=== PATIENT | female | born 1985 | race Caucasian/White ===

== ENCOUNTER 2017-03-21 14:01 | Outpatient (CLI) | payer OTHER ==
[2017-03-21 15:03] LABS: BASOPHILS % (AUTO) 0.3 %; EOSINOPHILS % (AUTO) 0.4 %; LYMPHOCYTES # (AUTO) 2.2 10^3/uL (1.5-3.5); LYMPHOCYTES % (AUTO) 20.6 %; MEAN CORPUSCULAR HEMOGLOBIN 29.1 pg (27.0-31.0); MEAN CORPUSCULAR HGB CONC 33.3 g/dL (32.0-36.0); MEAN CORPUSCULAR VOLUME 87.4 fL (81.0-99.0); MEAN PLATELET VOLUME 9.5 fL (7.9-10.8); MONOCYTES # (AUTO) 0.5 10^3/uL (0.0-1.0); MONOCYTES % (AUTO) 4.7 %; NEUTROPHILS # (AUTO) 7.8 10^3/uL (1.5-6.6); RED BLOOD COUNT 3.78 10^6/uL (4.20-5.40); RED CELL DISTRIBUTION WIDTH 13.9 % (12.0-15.0); UNCORRECTED WHITE BLOOD COUNT 10.5 x10^3/uL; WHITE BLOOD COUNT 10.5 x10^3/uL (4.8-10.8)
[2017-03-21 15:16] LABS: ALBUMIN/GLOBULIN RATIO 0.9 (1.0-2.2); BILIRUBIN,TOTAL 0.4 mg/dL (0.2-1.0); CALCIUM 8.7 mg/dL (8.5-10.3); CREATININE 0.5 mg/dL (0.4-1.0); POTASSIUM 3.4 mmol/L (3.5-5.0); TOTAL PROTEIN 6.4 g/dL (6.7-8.2)
[2017-03-21 15:52] LABS: BILIRUBIN,URINE NEGATIVE (NEGATIVE)
[2017-03-21 15:53] LABS: UA CHARGE (STRIP ONLY) YES; UR CULTURE IF IND NOT INDICATED
[2017-03-21 16:22] VITALS: BP 110/63
--- NOTE | 2017-03-22 07:07 | HISTORY & PHYSICAL EXAMINATION ---
DATE OF ADMISSION: 03/21/2017 DIAGNOSES 1. A 28 week 4 day gestation. 2. Vague abdominal discomfort in the mid epigastrium. HISTORY: The patient is a 31-year-old 2, para 0-0-1-0 at 28 weeks and 4 days' gesta tion who developed a fluttering discomfort in her mid upper abdomen. She does not relate any jenna ut erine contractions, leakage of fluid. She has no fevers, nausea, vomiting, or UTI symptoms. There is no occurrence of this pain associated with food. PHYSICAL EXAMINATION GENERAL: Well groomed, pleasant, talkative, lying in bed, no distress. VITAL SIGNS: Temperature 98.4, pulse 76, blood pressure 129/59, respirations 16, oxygen saturation 98 . ABDOMEN: Nondistended. No hepatosplenomegaly. No tenderness elicited or peritoneal signs. UTERUS: Appropriate for size, roughly 28 cm; no focal tenderness or palpable contractions. move ment is palpated. EFM reactive for 28 weeks, baseline 150, good accels, occasional variable decel. No contractions note d. LABORATORY DATA: Hemoglobin 11.0, white count 10.5, platelets 176. AST 18, ALT 16, alkaline phosphatase 79, total protein 6.4, albumin 3.1, calcium 8.7, sodium 137, pot assium 3.4, creatinine 0.5, GFR estimated 146. Urine: Yellow, clear. Negative protein, nitrite and blood. ASSESSMENT: The patient has vague abdominal pain that does not seem to emanate from the uterus. The l ocation is suspect for biliary pain, but it does not fit the description of biliary pain and physical examination does not find any abdominal pain at all. There is little symptomatology or laboratory ev idence for urinary tract infection. Overall, pain is enigmatic and probably self-limiting. PLAN: The patient was given reassurance and sent home with warning signs and call back instructions. JOB #: [id number] EXT JOB #:[id number]
== END 2017-03-21 16:20 | disposition home or self-care (01) ==
LOC: WFO 14:01 → OB 14:06 → WFO 16:20
PROVIDERS: ATTEND Obstetrics & Gynecology
DX: O99.89 Other specified diseases and conditions complicating pregnancy, childbirth and the puerperium (principal); R10.13 Epigastric pain; Z3A.28 28 weeks gestation of pregnancy
CPT/HCPCS: 36415; 80053; 80306; 81001; 81003; 85025; 87086; 99213

== ENCOUNTER 2017-04-15 14:10 | Outpatient (CLI) | payer OTHER ==
[2017-04-15 14:41] VITALS: BP 111/64
[2017-04-15 14:41] LABS: BILIRUBIN,URINE NEGATIVE (NEGATIVE)
[2017-04-15 14:42] LABS: UA CHARGE (STRIP ONLY) YES; UR CULTURE IF IND NOT INDICATED
== END 2017-04-15 16:50 | disposition home or self-care (01) ==
LOC: WFO 14:10 → OB 14:11 → WFO 16:50
PROVIDERS: ATTEND Obstetrics & Gynecology
DX: O99.89 Other specified diseases and conditions complicating pregnancy, childbirth and the puerperium (principal); R10.9 Unspecified abdominal pain; Z3A.32 32 weeks gestation of pregnancy
CPT/HCPCS: 81001; 81003; 82731; 87086; 99214

== ENCOUNTER 2017-05-13 10:31 | Outpatient (CLI) | payer OTHER | END 2017-05-13 10:32 | LOC: LAB.R 10:31 | PROVIDERS: ATTEND Obstetrics & Gynecology | DX: Z34.83 Encounter for supervision of other normal pregnancy, third trimester (principal) | CPT/HCPCS: 87081 ==

== ENCOUNTER 2017-05-22 15:47 | Outpatient (CLI) | payer OTHER ==
[2017-05-22 16:11] VITALS: BP 126/57
[2017-05-22 16:21] LABS: BILIRUBIN,URINE NEGATIVE (NEGATIVE)
[2017-05-22 16:39] LABS: UR CULTURE IF IND NOT INDICATED
== END 2017-05-22 16:50 | disposition home or self-care (01) ==
LOC: WFO 15:47 → OB 15:54 → WFO 16:50
PROVIDERS: ATTEND Obstetrics & Gynecology
DX: Z34.83 Encounter for supervision of other normal pregnancy, third trimester (principal)
CPT/HCPCS: 81001; 87086; 99212

== ENCOUNTER 2017-05-28 23:55 | Inpatient (IN) | payer OTHER ==
[2017-05-29] MEDS ORDERED: PENICILLIN G POTASSIUM 5,000,000 UNIT in SODIUM CHLORIDE 0.9% MINIBAG 100 ML IV ONE (00:49)
[2017-05-29] MEDS ORDERED: fentaNYL 100 MCG/2 ML VIAL IVP PRN (00:50)
[2017-05-29] MEDS ORDERED: SODIUM CHLORIDE FLUSH 0.9% 10 ML SYRINGE IVP PRN (00:50)
[2017-05-29] MEDS ORDERED: OXYTOCIN/LACTATED RINGERS 250 ML IV SCH ×2 (01:00→10:00)
[2017-05-29] MEDS: LACTATED RINGERS 1,000 ML IV SCH ×4 (01:15→19:22)
[2017-05-29] MEDS ORDERED: SODIUM CHLORIDE 0.9% 100ML 100 ML IV ONE (01:28)
[2017-05-29 01:47] LABS: BASOPHILS % (AUTO) 0.2 %; EOSINOPHILS % (AUTO) 0.4 %; HCT - HEMATOCRIT 33.2 % (37.0-47.0); HGB - HEMOGLOBIN 11.2 g/dL (12.0-16.0); LYMPHOCYTES # (AUTO) 2.3 10^3/uL (1.5-3.5); MEAN CORPUSCULAR HEMOGLOBIN 29.1 pg (27.0-31.0); MEAN CORPUSCULAR HGB CONC 33.8 g/dL (32.0-36.0); MEAN CORPUSCULAR VOLUME 86.2 fL (81.0-99.0); MEAN PLATELET VOLUME 11.5 fL (7.9-10.8); MONOCYTES # (AUTO) 0.5 10^3/uL (0.0-1.0); MONOCYTES % (AUTO) 4.5 %; NEUTROPHILS # (AUTO) 8.7 10^3/uL (1.5-6.6); NEUTROPHILS % (AUTO) 74.9 %; RED BLOOD COUNT 3.85 10^6/uL (4.20-5.40); UNCORRECTED WHITE BLOOD COUNT 11.6 x10^3/uL; WHITE BLOOD COUNT 11.6 x10^3/uL (4.8-10.8)
[2017-05-29] MEDS ORDERED: PENICILLIN G POTASSIUM 2,500,000 UNIT in SODIUM CHLORIDE 0.9% 100ML 100 ML IV SCH (05:00)
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
[2017-05-29] MEDS: PENICILLIN G POTASSIUM 2,500,000 UNIT in SODIUM CHLORIDE 0.9% 100ML 100 ML IV SCH ×3 (11:43→23:00)
--- NOTE | 2017-05-29 13:59 | PROVIDER PROGRESS NOTE ---
Labor Progress Note - Uterine Monitoring Contraction Frequency (min/apart): Intermitent Contraction Intensity: positive: Mild Uterine Resting Tone: positive: Soft - Monitoring Monitor Mode: positive: External ultrasound Heart Rate Baseline: 135 Heart Rate Variability: positive: Moderate (6-25 bmp) Accelerations: positive: Present, 15x15 Decelerations: positive: Prolonged (>2x10 min) Strip Review: positive: Category II (2.5 min Decel to 70's w recovery) - Labor Progress Note Labor Progress Note/Additional Text: Pit stopped and O2 w position change. Recovery. I am in house for Pit Restart.
--- NOTE | 2017-05-29 17:14 | PROVIDER PROGRESS NOTE ---
Labor Progress Note - Uterine Monitoring Uterine Monitoring Mode: positive: External toco, Palpation Contraction Frequency (min/apart): Q4-6 Min Contraction Intensity: positive: Moderate Uterine Resting Tone: positive: Soft - Monitoring Monitor Mode: positive: External ultrasound Heart Rate Baseline: 135 Heart Rate Variability: positive: Moderate (6-25 bmp) Accelerations: positive: Absent Decelerations: positive: None Strip Review: positive: Category I - Vaginal Exam Dilation (in cm): 1 Effacement (%): 25% Station: -1 Cervical Position: Posterior - Labor Progress Note Labor Progress Note/Additional Text: Patient contractions have increased and pain control an issue. We discussed epidural again and she approves. Stable Cat1 FHT tracing. When cervix better dilated will offer IUPC. Patient expresses frustration at slow progress but reassurance offered.
[2017-05-29] MEDS ORDERED: fent/BUPIV 2 MCG/0.125% 250 ML EP ONE (17:34)
[2017-05-29] MEDS ORDERED: ROPIVACAINE 0.2% PF 10 ML VIAL EPI ONE (18:00)
[2017-05-29] MEDS ORDERED: ePHEDrine 50 MG/ML AMP IVP PRN (18:16)
[2017-05-29] MEDS ORDERED: NALBUPHINE 20 MG/ML AMP IVP PRN (18:16)
[2017-05-29] MEDS ORDERED: diphenhydrAMINE INJ 50 MG/ML VIAL IVP PRN (18:16)
[2017-05-29] MEDS ORDERED: LACTATED RINGERS 500 ML IV ONE (18:16)
[2017-05-29] MEDS ORDERED: fent/BUPIV 2 MCG/0.125% 250 ML EP PRN (18:16)
[2017-05-29] MEDS ORDERED: NALOXONE 0.4 MG/ML VIAL IVP PRN (18:16)
[2017-05-29] MEDS ORDERED: ONDANSETRON 4 MG/2 ML VIAL IVP PRN (18:16)
[2017-05-29] MEDS ORDERED: METOCLOPRAMIDE 10 MG/2 ML VIAL IVP PRN (18:16)
--- NOTE | 2017-05-29 19:23 | PROVIDER PROGRESS NOTE ---
Labor Progress Note - Uterine Monitoring Uterine Monitoring Mode: positive: IUPC Contraction Frequency (min/apart): Q 2.5 min Contraction Intensity: positive: Moderate to strong Uterine Resting Tone: positive: Soft - Monitoring Monitor Mode: positive: External ultrasound Heart Rate Baseline: 135 -140 Heart Rate Variability: positive: Moderate (6-25 bmp) Accelerations: positive: Present, 15x15 Decelerations: positive: None - Vaginal Exam Dilation (in cm): 2 Effacement (%): 80% Station: 0 Cervical Position: Midposition - Labor Progress Note Labor Progress Note/Additional Text: Progress made w Augmentation. Pit 9 mu, IUPC inserted and working
[2017-05-29] MEDS: ONDANSETRON 4 MG/2 ML VIAL IVP PRN (23:05)
[2017-05-30] MEDS: LACTATED RINGERS 1,000 ML IV SCH (02:14)
[2017-05-30] MEDS: PENICILLIN G POTASSIUM 2,500,000 UNIT in SODIUM CHLORIDE 0.9% 100ML 100 ML IV SCH (02:50)
--- NOTE | 2017-05-30 03:23 | PROVIDER PROGRESS NOTE ---
Labor Progress Note - Uterine Monitoring Uterine Monitoring Mode: positive: IUPC Contraction Frequency (min/apart): 2.5 min Contraction Intensity: positive: Moderate to strong Uterine Resting Tone: positive: Soft Other Uterine Monitoring: + 200 Archbold Units - Monitoring Monitor Mode: positive: External ultrasound Heart Rate Baseline: 135 Heart Rate Variability: positive: Moderate (6-25 bmp) Accelerations: positive: Present, 15x15 Decelerations: positive: None Strip Review: positive: Category I - Vaginal Exam Dilation (in cm): 10 Effacement (%): 1000% Station: 1 Cervical Position: Anterior - Labor Progress Note Labor Progress Note/Additional Text: Entering Stage 2
--- NOTE | 2017-05-30 04:47 | PROVIDER PROGRESS NOTE ---
Labor Progress Note - Uterine Monitoring Uterine Monitoring Mode: positive: IUPC Contraction Frequency (min/apart): Q 2.5 Contraction Intensity: positive: Moderate to strong Uterine Resting Tone: positive: Soft Other Uterine Monitoring: IUPC - Monitoring Monitor Mode: positive: External ultrasound Heart Rate Baseline: 130 Heart Rate Variability: positive: Moderate (6-25 bmp) Accelerations: positive: Present, 15x15 Decelerations: positive: Early Strip Review: positive: Category I - Vaginal Exam Dilation (in cm): 10 Effacement (%): 100 Station: 1 Cervical Position: Anterior - Labor Progress Note Labor Progress Note/Additional Text: Pt pushing w good effort. Using squat Bar. Mod Caput
[2017-05-30] MEDS: ONDANSETRON 4 MG/2 ML VIAL IVP PRN (05:59)
[2017-05-30] MEDS ORDERED: LACTATED RINGERS 1,000 ML IV ONE (06:11)
[2017-05-30] MEDS: LACTATED RINGERS 1,000 ML IV ONE ×2 (06:11→08:18)
[2017-05-30] MEDS ORDERED: CITRIC ACID/SODIUM CITRATE 15 ML UDC PO ONE (06:15)
[2017-05-30] MEDS ORDERED: ceFAZolin 3 GM in SODIUM CHLORIDE 0.9% 100ML 100 ML IV SCH (06:18)
[2017-05-30] MEDS ORDERED: ceFAZolin 2 GM/50 ML 50 ML IV ONE (06:27)
[2017-05-30] MEDS ORDERED: ceFAZolin 1 GM VIAL ONE (06:29)
[2017-05-30] MEDS ORDERED: SODIUM CHLORIDE 0.9% 50 ML IV ONE (06:31)
[2017-05-30] MEDS ORDERED: SODIUM BICARBONATE ABBOJECT 50 MEQ/50 ML SYRINGE IVP ONE (06:45)
[2017-05-30] MEDS ORDERED: MORPHINE PF 5 MG/10 ML AMP EP ONE (06:45)
[2017-05-30] MEDS ORDERED: OXYTOCIN 10 UNIT/ML VIAL IV ONE (06:45)
[2017-05-30] MEDS ORDERED: fentaNYL 100 MCG/2 ML VIAL IVP ONE (06:45)
[2017-05-30] MEDS ORDERED: KETOROLAC 30 MG/ML VIAL IVP ONE (06:45)
[2017-05-30] MEDS ORDERED: ONDANSETRON 4 MG/2 ML VIAL IVP ONE (06:45)
[2017-05-30] MEDS ORDERED: CARBOPROST TROMETHAMINE 250 MCG/ML AMP IM ONE (06:45)
[2017-05-30] MEDS ORDERED: LIDOCAINE 2%-EPI 1:100000 20 ML MDV SUBQ ONE (06:45)
[2017-05-30] MEDS ORDERED: LIDOCAINE-MPF 2% 5 ML VIAL IM ONE (06:45)
[2017-05-30] MEDS ORDERED: LACTATED RINGERS 1,000 ML IV SCH ×2 (08:00→09:00)
[2017-05-30] MEDS ORDERED: MAGNESIUM HYDROXIDE 2,400 MG/30 ML UDC PO PRN (08:05)
[2017-05-30] MEDS ORDERED: diphenhydrAMINE 25 MG CAPSULE PO PRN (08:05)
[2017-05-30] MEDS ORDERED: ZOLPIDEM 5 MG TABLET PO PRN (08:05)
--- NOTE | 2017-05-30 08:14 | OPERATIVE REPORT ---
Operative Report - General Admit Date: 05/29/17 Procedure Date: 05/30/17 Planned Procedure: Primary C Section Pre-Op Diagnosis: Failure to Descend; Post Op Diagnosis: Same; Macrosomia - Procedure Note Primary Surgeon: Rony DONOVAN Secondary Surgeon: Carlos DONOVAN Anesthesia Provider: CONCHITA Worley Anesthesia Technique: Epidural Estimated Blood Loss (in cc): 450 Drain/Tube Type: Other (Guidry & Wound Vac) Complications: NONE - Other Other Information/Narrative: Male, W = 9lbs 6oz. Cord gases
[2017-05-30] MEDS: ACETAMINOPHEN 500 MG TABLET PO SCH ×2 (12:06→16:57)
[2017-05-30] MEDS: IBUPROFEN 600 MG TABLET PO SCH ×3 (12:08→19:33)
[2017-05-30] MEDS: oxyCODONE 5 MG TABLET PO PRN ×3 (13:51→22:59)
[2017-05-30] MEDS: DOCUSATE SODIUM 100 MG CAPSULE PO SCH (13:52)
[2017-05-30] MEDS: SIMETHICONE CHEW 80 MG TABLET PO SCH ×2 (13:53→22:59)
[2017-05-31] MEDS: IBUPROFEN 600 MG TABLET PO SCH ×4 (01:28→19:54)
[2017-05-31] MEDS: ACETAMINOPHEN 500 MG TABLET PO SCH ×3 (01:28→17:22)
[2017-05-31] MEDS: DOCUSATE SODIUM 100 MG CAPSULE PO SCH ×3 (01:28→21:24)
[2017-05-31] MEDS: oxyCODONE 5 MG TABLET PO PRN ×5 (04:10→20:41)
--- NOTE | 2017-05-31 06:23 | PROVIDER PROGRESS NOTE ---
Subjective - General Admit Date: 05/29/17 Procedure Date: 05/30/17 Post Op Days: 1 Procedure Performed: C Section - Review of Systems Wound/Incisions: positive: Healing well, Dressing dry and intact Drain Type: Guidry Out General: positive: No symptoms HEENT: positive: No symptoms Pulmonary: positive: No symptoms Cardiovascular: positive: No symptoms Gastrointestinal: positive: Flatus Genitourinary: positive: No symptoms, Other (Mild Nonfoul Rubra) Musculoskeletal: positive: No symptoms Skin: positive: No symptoms Psychiatric: positive: No symptoms Objective - Patient Data Vital Signs: Vital Signs x48h Temp Pulse Resp BP Pulse Ox 05/31/17 03:54 98.4 F 80 16 116/47 L 98 05/31/17 01:30 16 05/31/17 00:08 98.4 F 75 16 117/48 L 98 05/30/17 22:30 16 Weight: Weight 05/29/17 05/30/17 05/31/17 23:59 23:59 23:59 Weight (kg) 113.852 kg Intake & Output: Intake and Output Totals x24h 05/29/17 05/30/17 05/31/17 23:59 23:59 23:59 Intake Total 4605 1074 1000 Output Total 1225 1880 1100 Balance 3380 -806 -100 - Lab Results Lab Results: 05/29/17 01:15 - Current Medications Current Medications: Current Medications Generic Name Dose Route Start Last Admin Trade Name Freq PRN Reason Stop Dose Admin Acetaminophen 1,000 mg 05/30/17 09:00 05/31/17 01:28 Tylenol PO 1,000 mg Q8H DREW Administration Diphenhydramine HCl 25 mg 05/30/17 08:05 05/30/17 11:01 Benadryl PO 25 mg Q6H PRN Administration ITCHING Docusate Sodium 100 mg 05/30/17 09:00 05/31/17 01:28 Colace 100mg Capsule PO 100 mg BID DREW Administration Lactated Ringer's 1,000 mls @ 150 mls/hr 05/29/17 01:00 05/30/17 02:14 Lr IV 150 mls/hr .Q6H40M DREW Administration Oxytocin/Lactated Ringer's 250 mls @ 1 mls/hr 05/29/17 10:00 05/30/17 04:51 Pitocin/Lactated Ringers IV 11 milliunit/min TITR DREW Titration Protocol 1 MILLIUNIT/MIN Ibuprofen 600 mg 05/30/17 09:00 05/31/17 01:28 Motrin PO 600 mg Q6H DREW Administration Ondansetron HCl 4 mg 05/29/17 00:50 05/30/17 05:59 Zofran Inj IVP 4 mg Q4H PRN Administration Nausea / Vomiting Oxycodone HCl 5 mg 05/30/17 08:05 05/31/17 04:10 Roxicodone PO 5 mg Q4HR PRN Administration PAIN Simethicone 80 mg 05/30/17 14:00 05/30/17 22:59 Mylicon PO 80 mg TID DREW Administration Sodium Chloride 10 ml 05/29/17 00:50 05/30/17 14:00 Normal Saline Flush 0.9% IVP 10 ml PRN PRN Administration NEEDED PER PROVIDER ORDERS Exam - Exam Vital Signs: Vital Signs (72 hours) 05/29/17 05/30/17 05/30/17 00:06 08:10 08:15 Temperature 97.9 F Heart Rate [ 70 Monitoring electrodes] Respiratory 16 Rate Blood Pressure [Left Brachial artery] Blood Pressure 137/83 H [Right Brachial artery] O2 Saturation 100 95 95 05/30/17 05/30/17 05/30/17 08:20 08:25 08:30 Temperature Heart Rate [ Monitoring electrodes] Respiratory Rate Blood Pressure [Left Brachial artery] Blood Pressure [Right Brachial artery] O2 Saturation 96 96 97 05/30/17 05/30/17 05/30/17 08:35 08:40 08:45 Temperature Heart Rate [ Monitoring electrodes] Respiratory Rate Blood Pressure [Left Brachial artery] Blood Pressure [Right Brachial artery] O2 Saturation 97 97 97 05/30/17 05/30/17 05/30/17 09:00 09:30 10:00 Temperature 98.2 F 98.4 F Heart Rate [ 79 72 72 Monitoring electrodes] Respiratory 17 16 Rate Blood Pressure 121/55 L 116/61 119/63 [Left Brachial artery] Blood Pressure [Right Brachial artery] O2 Saturation 99 99 05/30/17 05/30/17 05/30/17 10:30 11:00 11:46 Temperature Heart Rate [ 72 Monitoring electrodes] Respiratory 16 17 Rate Blood Pressure 114/60 [Left Brachial artery] Blood Pressure [Right Brachial artery] O2 Saturation 05/30/17 05/30/17 05/30/17 11:54 13:10 14:11 Temperature 97.9 F Heart Rate [ 84 77 Monitoring electrodes] Respiratory 18 18 18 Rate Blood Pressure [Left Brachial artery] Blood Pressure 132/61 H [Right Brachial artery] O2 Saturation 98 98 05/30/17 05/30/17 05/30/17 16:00 19:39 20:30 Temperature 98.4 F 98.4 F Heart Rate [ 75 86 Monitoring electrodes] Respiratory 16 16 16 Rate Blood Pressure 104/56 L [Left Brachial artery] Blood Pressure 111/60 [Right Brachial artery] O2 Saturation 97 100 05/30/17 05/30/17 05/30/17 21:16 21:40 22:30 Temperature Heart Rate [ Monitoring electrodes] Respiratory 16 18 16 Rate Blood Pressure [Left Brachial artery] Blood Pressure [Right Brachial artery] O2 Saturation 05/31/17 05/31/17 05/31/17 00:08 01:30 03:54 Temperature 98.4 F 98.4 F Heart Rate [ 75 80 Monitoring electrodes] Respiratory 16 16 16 Rate Blood Pressure [Left Brachial artery] Blood Pressure 117/48 L 116/47 L [Right Brachial artery] O2 Saturation 98 98 General: Alert, Oriented x3 HEENT: EOMI, Mucous membr. moist/pink Lungs: Clear to auscultation Cardiovascular: Regular rate, Normal S1, Normal S2, No murmurs Abdomen: Normal bowel sounds, Soft, No tenderness Extremities: Other (Ankle Edema NO calf tenderness) Skin: No rashes Neurological: Normal speech, Normal tone, Sensation intact Psych/Mental Status: Mental status NL Assess/Plan - Patient Problems Active Problems Comments: Pt recovering well. Ambulate & increase activity. - Additional Planning Condition/Complexity: Other (GOOD) My Orders: My Active Orders 05/30/17 06:17 SCDs [RC] QSHIFT 05/30/17 08:00 OB Maintain Wound VAC [RC] Q4HR 05/30/17 08:01 Activity - [RC] QSHIFT IO [RC] Q1HX12,Q4HR Incentive Spirometry - RT [RC] Routine Notify Provider - Specific Ins [RC] PRN Notify Provider - VS Parameter [RC] .notify Vital Signs - OB [RC] Q15MX8,Q1HRX2,Q4HRX6,QSHIFT 05/30/17 08:05 IO [RC] Q1HX12,Q4HR Incentive Spirometry - RT [RC] Routine Initiate Line Care Protocol [RC] .protocol Notify Provider - Specific Ins [RC] PRN Notify Provider - VS Parameter [RC] .notify Checks - OB [RC] Q15MX8,Q1HRX2,Q4HRX6,QSHIFT Vital Signs - OB [RC] Q15MX8,Q1HRX2,Q4HRX6,QSHIFT Magnesium Hydroxide [Milk of Magnesia] 2,400 mg PO Q8HR PRN Zolpidem [Ambien] 10 mg PO QPM PRN diphenhydrAMINE [Benadryl] 25 mg PO Q6H PRN oxyCODONE [Roxicodone] 5 mg PO Q4HR PRN Condition of Patient [OTHERS] Routine DVT Prophylaxis [OTHERS] Routine 05/30/17 08:06 SCDs [RC] QSHIFT 05/30/17 09:00 Acetaminophen [Tylenol] 1,000 mg PO Q8H Docusate Sodium 100Mg Capsule [Colace 100Mg Capsule] 100 mg PO BID Ibuprofen [Motrin] 600 mg PO Q6H Lactated Ringers [Lr] 1,000 ml IV 100 mls/hr 05/30/17 14:00 Simethicone [Mylicon] 80 mg PO TID 05/30/17 20:01 Guidry Discontinuation [RC] ONCE 05/30/17 Lunch Regular Diet [DIET] 05/31/17 05:00 CBC - COMP BLD CT W/AUTO DIFF [HEME] Routine Plan Discussed with:: Patient, Other (On Coming OB) Time Spent: 15-30 minutes
[2017-05-31 06:56] LABS: BASOPHILS % (AUTO) 0.2 %; EOSINOPHILS % (AUTO) 0.4 %; HCT - HEMATOCRIT 28.9 % (37.0-47.0); HGB - HEMOGLOBIN 9.5 g/dL (12.0-16.0); LYMPHOCYTES # (AUTO) 1.9 10^3/uL (1.5-3.5); LYMPHOCYTES % (AUTO) 16.4 %; MEAN CORPUSCULAR HGB CONC 32.7 g/dL (32.0-36.0); MEAN CORPUSCULAR VOLUME 88.5 fL (81.0-99.0); MEAN PLATELET VOLUME 10.1 fL (7.9-10.8); MONOCYTES # (AUTO) 0.6 10^3/uL (0.0-1.0); MONOCYTES % (AUTO) 5.3 %; NEUTROPHILS # (AUTO) 8.9 10^3/uL (1.5-6.6); NEUTROPHILS % (AUTO) 77.7 %; RED BLOOD COUNT 3.26 10^6/uL (4.20-5.40); RED CELL DISTRIBUTION WIDTH 14.1 % (12.0-15.0); UNCORRECTED WHITE BLOOD COUNT 11.4 x10^3/uL; WHITE BLOOD COUNT 11.4 x10^3/uL (4.8-10.8)
[2017-05-31] MEDS: SIMETHICONE CHEW 80 MG TABLET PO SCH ×3 (06:58→21:24)
--- NOTE | 2017-05-31 07:35 | OPERATIVE REPORT ---
DATE OF SURGERY: 05/29/2017 00:00:00 PREOPERATIVE DIAGNOSES 1. Term with premature rupture of membranes. 2. Pitocin augmentation. 3. Failure to descend in second stage of labor. 4. Macrosomia suspected. 5. Group B streptococcal maternal colonization. 6. Maternal morbid obesity. POSTOPERATIVE DIAGNOSES 1. Macrosomic infant. 2. Term with premature rupture of membranes. 3. Pitocin augmentation. 4. Failure to descend in second stage of labor. 5. Group B streptococcal maternal colonization. 6. Maternal morbid obesity. NAME OF PROCEDURE: Primary lower segment transverse section; vacuum assist, living male . SURGEON: En Uribe MD, FACOG, FICS DIRECTOR SOCIAL SERVICE SURGEON: Miguel Gonzalez MD ANESTHESIA: Aguilar Worley CRNA; epidural. COMPLICATIONS: None. BLOOD LOSS: 450. DRAINS: Guidry with 300 mL of clear urine. FINDINGS: Prior to surgery, patient was augmented with the aid of an IUPC and was found to have plus 250 Conrath units for over 2 hours. She pushed with excellent effort and could not advance the head beyond +1 station, though the fetus developed marked caput. Membranes had been ruptured in excess of 24 hours. For the most part, external monitor strip was stable though there were rare intermittent late decelerations, overall cat 1. Prior to section, complete informed consent session was done and consent signed. Incision start time was 0700 with of a living male infant at 0712 hours. The male was large with a weight of 9 pounds 7.5 ounces, with a head circumference in excess of 14. Shoulders also were noted to be large. There was no trauma noted on initial examination or obvious congenital anomalies. Apgars were 9 and 9 with arterial cord pH of 7.203 and base excess of -5.9. Reference Dr. Spears's notes. The uterus had no myomas or intracavitary defects. Both tubes were open and fluffy in appearance. Ovaries were normal with some follicular activity and decidualization reaction. Placenta was delivered intact without abruption or obvious signs of infection. Cord was 3-vessel configuration. There was no cord entanglement or cord factor to explain the lack of descent. TECHNIQUE: Patient was brought to the operating room and placed in the supine position initially. She was then moved to the dorsal lithotomy position on Kingsley mobile stirrups. She was prepped and draped in the customary sterile fashion inclusive of vaginal prep. Anesthesia was confirmed good through level T10. Timeout briefing was done per protocol. All team members were briefed as to what to expect during the procedure. Mother affirmed that she was ready to begin. Abdominal wall was opened with a Pfannenstiel incision. As noted before, the patient was morbidly obese. The fetus position was ascertained by palpation and did not seem to be well-engaged. Curvilinear hysterotomy was cut transversely. On entry into the amniotic cavity, clear fluid, nonfoul, was expressed. Incision was extended with gentle finger traction. Firer Locomotive Crane secured the head with his right hand and guided it into the hysterotomy wound. The physician assistant certified applied moderate amount of fundal pressure; however, the head could not easily fit through the hysterotomy. Hysterotomy was deemed adequate. Kiwi vacuum was placed on the vertex point and once again pressure and traction applied with a resultant popout. Kiwi was reapplied and it took two more pulls before delivery of the head. Oral and nasopharynx were suctioned. There was no nuchal cord. Shoulders were difficult to deliver. The anterior shoulder was swept to create more room in the wound. Judiciously posterior shoulder was delivered. Cord was doubly clamped and transected. The was handed to the awaiting epic analyst. Cord blood and cord gas samples were sent. Uterus was exteriorized and with gentle massage the placenta removed intact. Massage was used to stem blood flow with Pitocin IV drip. Initially blood loss was brisk but responded to massage and Pitocin. Hemabate was standing by. Hysterotomy was closed in 2 layers. First, an interlocked stitch of 0 Vicryl followed by an imbricating layer of 0 chromic in a cardinal stitch. Serosa was closed with a running stitch of 2-0 Vicryl. Abdominal cavity was lavaged of clots with normal saline. All surgical sites were inspected and found to be hemostatic. Uterus was placed back within the abdomen. All clots were removed. For closure, it was elected not to close the peritoneum. Rectus muscle was tacked back together in the midline with 2-0 Vicryl. Fascia was closed with a running stitch of 0 Vicryl. Subcutaneous tissue was closed with interrupted stitches of 3-0 chromic. His skin was closed with a running subcuticular stitch of 4-0 Monocryl. Wound VAC was applied postoperatively. At the end of the case all sponge, needle, and instrument counts were confirmed as correct. Patient was uneventfully aroused from anesthesia and taken to the recovery room in stable condition. MATERNAL LABS: Rh positive, Rubella immune, RPR negative, and hepatitis B negative. JOB #: [id number] EXT JOB #:[id number] MTDD
--- NOTE | 2017-05-31 08:30 | PROVIDER PROGRESS NOTE ---
Subjective - General Admit Date: 05/29/17 Procedure Date: 05/30/17 Post Op Days: 1 Procedure Performed: C Section - Review of Systems Wound/Incisions: positive: Healing well, Dressing dry and intact Drain Type: Guidry Out General: positive: No symptoms (Pain 3/10 good pain control. not voided yet. passing gas.) HEENT: positive: No symptoms Pulmonary: positive: No symptoms Cardiovascular: positive: No symptoms Gastrointestinal: positive: Flatus Genitourinary: positive: No symptoms, Other (Mild Nonfoul Rubra) Musculoskeletal: positive: No symptoms Skin: positive: No symptoms Psychiatric: positive: No symptoms Objective - Patient Data Reviewed Vital Signs: Yes Vital Signs: Vital Signs x48h Temp Pulse Resp BP Pulse Ox 05/31/17 07:31 36.7 C 69 16 117/66 100 05/31/17 03:54 36.9 C 80 16 116/47 L 98 05/31/17 01:30 16 Weight: Weight 05/29/17 05/30/17 05/31/17 23:59 23:59 23:59 Weight (kg) 113.852 kg Intake & Output: Intake and Output Totals x24h 05/29/17 05/30/17 05/31/17 23:59 23:59 23:59 Intake Total 4605 1074 1000 Output Total 1225 1880 2500 Balance 3380 -806 1500 - Lab Results Lab Results: 05/31/17 06:17 Other Lab Results: Lab Results x24hrs 05/31/17 Range/Units 06:17 WBC 11.4 H (4.8-10.8) x10^3/uL RBC 3.26 L (4.20-5.40) 10^6/uL Hgb 9.5 L (12.0-16.0) g/dL Hct 28.9 L (37.0-47.0) % MCV 88.5 (81.0-99.0) fL MCH 29.0 (27.0-31.0) pg MCHC 32.7 (32.0-36.0) g/dL RDW 14.1 (12.0-15.0) % Plt Count 106 L (130-450) 10^3/uL MPV 10.1 (7.9-10.8) fL Neut # 8.9 H (1.5-6.6) 10^3/uL Lymph # 1.9 (1.5-3.5) 10^3/uL [place] # 0.6 (0.0-1.0) 10^3/uL Eos # 0.0 (0.0-0.7) 10^3/uL Baso # 0.0 (0.0-0.1) 10^3/uL Absolute Nucleated RBC 0.00 x10^3/uL Nucleated RBCs 0.0 /100WBC - Current Medications Current Medications: Current Medications Generic Name Dose Route Start Last Admin Trade Name Freq PRN Reason Stop Dose Admin Acetaminophen 1,000 mg 05/30/17 09:00 05/31/17 01:28 Tylenol PO 1,000 mg Q8H DREW Administration Diphenhydramine HCl 25 mg 05/30/17 08:05 05/30/17 11:01 Benadryl PO 25 mg Q6H PRN Administration ITCHING Docusate Sodium 100 mg 05/30/17 09:00 05/31/17 01:28 Colace 100mg Capsule PO 100 mg BID DREW Administration Lactated Ringer's 1,000 mls @ 150 mls/hr 05/29/17 01:00 05/30/17 02:14 Lr IV 150 mls/hr .Q6H40M DREW Administration Oxytocin/Lactated Ringer's 250 mls @ 1 mls/hr 05/29/17 10:00 05/30/17 04:51 Pitocin/Lactated Ringers IV 11 milliunit/min TITR DREW Titration Protocol 1 MILLIUNIT/MIN Lactated Ringer's 1,000 mls @ 100 mls/hr 05/30/17 09:00 05/31/17 07:37 Lr IV Not Given .Q10H DREW Ibuprofen 600 mg 05/30/17 09:00 05/31/17 07:43 Motrin PO 600 mg Q6H DREW Administration Ondansetron HCl 4 mg 05/29/17 00:50 05/30/17 05:59 Zofran Inj IVP 4 mg Q4H PRN Administration Nausea / Vomiting Oxycodone HCl 5 mg 05/30/17 08:05 05/31/17 08:13 Roxicodone PO 5 mg Q4HR PRN Administration PAIN Simethicone 80 mg 05/30/17 14:00 05/31/17 06:58 Mylicon PO 80 mg TID DREW Administration Sodium Chloride 10 ml 05/29/17 00:50 05/30/17 14:00 Normal Saline Flush 0.9% IVP 10 ml PRN PRN Administration NEEDED PER PROVIDER ORDERS - Physical Exam Wound/Incisions: positive: Dressing dry and intact (wound vac functioning) General Appearance: positive: No acute distress, Alert Neck: positive: No JVD Respiratory: positive: Chest non-tender, No respiratory distress Cardiovascular: positive: Regular rate & rhythm, No murmur, No gallop Abdomen: positive: Non-tender, Nml bowel sounds, Mass (u-1) Skin: positive: Color nml, No rash, Warm, Dry Extremities: positive: Pedal edema. negative: Calf tenderness, Yovani's sign/ cords Neurologic/Psychiatric: positive: Oriented x3 Impression/Plan - Problem List Problem List: S/P PLTC/S for macrosomia. Progressing well. thrombocytopenia. Post op anemia. will repeat CBC
[2017-06-01] MEDS: oxyCODONE 5 MG TABLET PO PRN ×4 (02:03→15:39)
[2017-06-01] MEDS: ACETAMINOPHEN 500 MG TABLET PO SCH ×2 (02:03→09:49)
[2017-06-01] MEDS: IBUPROFEN 600 MG TABLET PO SCH ×3 (02:03→15:39)
[2017-06-01] MEDS: SIMETHICONE CHEW 80 MG TABLET PO SCH (05:46)
[2017-06-01 06:26] LABS: BASOPHILS % (AUTO) 0.2 %; EOSINOPHILS # (AUTO) 0.1 10^3/uL (0.0-0.7); EOSINOPHILS % (AUTO) 0.7 %; HCT - HEMATOCRIT 29.1 % (37.0-47.0); HGB - HEMOGLOBIN 9.6 g/dL (12.0-16.0); LYMPHOCYTES # (AUTO) 1.7 10^3/uL (1.5-3.5); LYMPHOCYTES % (AUTO) 15.8 %; MEAN CORPUSCULAR HEMOGLOBIN 29.4 pg (27.0-31.0); MEAN CORPUSCULAR HGB CONC 32.9 g/dL (32.0-36.0); MEAN CORPUSCULAR VOLUME 89.3 fL (81.0-99.0); MEAN PLATELET VOLUME 10.5 fL (7.9-10.8); MONOCYTES # (AUTO) 0.5 10^3/uL (0.0-1.0); MONOCYTES % (AUTO) 4.7 %; NEUTROPHILS # (AUTO) 8.3 10^3/uL (1.5-6.6); NEUTROPHILS % (AUTO) 78.6 %; RED BLOOD COUNT 3.25 10^6/uL (4.20-5.40); RED CELL DISTRIBUTION WIDTH 14.8 % (12.0-15.0); UNCORRECTED WHITE BLOOD COUNT 10.6 x10^3/uL; WHITE BLOOD COUNT 10.6 x10^3/uL (4.8-10.8)
[2017-06-01] MEDS: DOCUSATE SODIUM 100 MG CAPSULE PO SCH (08:03)
--- NOTE | 2017-06-01 08:47 | PROVIDER PROGRESS NOTE ---
Subjective - General Admit Date: 05/29/17 Procedure Date: 05/30/17 Post Op Days: 2 Procedure Performed: C Section - Review of Systems Wound/Incisions: positive: Dressing dry and intact (wound vac functioning. good seal) Drain Type: Guidry Out General: positive: No symptoms (Pain 3-4/10 good pain control. Voiding easly. passing gas. no stool. Breast feeding) HEENT: positive: No symptoms Pulmonary: positive: No symptoms Cardiovascular: positive: No symptoms Gastrointestinal: positive: Flatus Genitourinary: positive: No symptoms, Other (Mild Nonfoul Rubra) Musculoskeletal: positive: No symptoms Skin: positive: No symptoms Psychiatric: positive: No symptoms Objective - Patient Data Reviewed Vital Signs: Yes Vital Signs: Vital Signs x48h Temp Pulse Resp BP BP Pulse Ox 06/01/17 07:58 36.6 C 80 16 126/68 98 06/01/17 03:52 37.1 C 62 16 124/52 L 99 Intake & Output: Intake and Output Totals x24h 05/30/17 05/31/17 06/01/17 23:59 23:59 23:59 Intake Total 1074 1000 Output Total 1880 2900 Balance -806 -1900 - Lab Results Lab Results: 06/01/17 05:38 Other Lab Results: Lab Results x24hrs 06/01/17 Range/Units 05:38 WBC 10.6 (4.8-10.8) x10^3/uL RBC 3.25 L (4.20-5.40) 10^6/uL Hgb 9.6 L (12.0-16.0) g/dL Hct 29.1 L (37.0-47.0) % MCV 89.3 (81.0-99.0) fL MCH 29.4 (27.0-31.0) pg MCHC 32.9 (32.0-36.0) g/dL RDW 14.8 (12.0-15.0) % Plt Count 129 L (130-450) 10^3/uL MPV 10.5 (7.9-10.8) fL Neut # 8.3 H (1.5-6.6) 10^3/uL Lymph # 1.7 (1.5-3.5) 10^3/uL [place] # 0.5 (0.0-1.0) 10^3/uL Eos # 0.1 (0.0-0.7) 10^3/uL Baso # 0.0 (0.0-0.1) 10^3/uL Absolute Nucleated RBC 0.01 x10^3/uL Nucleated RBCs 0.0 /100WBC - Current Medications Current Medications: Current Medications Generic Name Dose Route Start Last Admin Trade Name Freq PRN Reason Stop Dose Admin Acetaminophen 1,000 mg 05/30/17 09:00 06/01/17 02:03 Tylenol PO 1,000 mg Q8H DREW Administration Diphenhydramine HCl 25 mg 05/30/17 08:05 05/30/17 11:01 Benadryl PO 25 mg Q6H PRN Administration ITCHING Docusate Sodium 100 mg 05/30/17 09:00 06/01/17 08:03 Colace 100mg Capsule PO 100 mg BID DREW Administration Oxytocin/Lactated Ringer's 250 mls @ 1 mls/hr 05/29/17 10:00 05/30/17 04:51 Pitocin/Lactated Ringers IV 11 milliunit/min TITR DREW Titration Protocol 1 MILLIUNIT/MIN Ibuprofen 600 mg 05/30/17 09:00 06/01/17 08:02 Motrin PO 600 mg Q6H DREW Administration Ondansetron HCl 4 mg 05/29/17 00:50 05/30/17 05:59 Zofran Inj IVP 4 mg Q4H PRN Administration Nausea / Vomiting Oxycodone HCl 5 mg 05/30/17 08:05 06/01/17 05:46 Roxicodone PO 5 mg Q4HR PRN Administration PAIN Simethicone 80 mg 05/30/17 14:00 06/01/17 05:46 Mylicon PO 80 mg TID DREW Administration Sodium Chloride 10 ml 05/29/17 00:50 05/30/17 14:00 Normal Saline Flush 0.9% IVP 10 ml PRN PRN Administration NEEDED PER PROVIDER ORDERS - Physical Exam Wound/Incisions: positive: Dressing dry and intact. negative: Erythema General Appearance: positive: No acute distress, Alert Respiratory: positive: Chest non-tender, No respiratory distress, Breath sounds nml. negative: Wheezes Cardiovascular: positive: Regular rate & rhythm, No murmur Abdomen: positive: Non-tender, Nml bowel sounds, Mass (U-2) Skin: positive: Color nml, No rash, Warm, Dry Extremities: positive: Pedal edema (+3). negative: Yovani's sign/cords Neurologic/Psychiatric: positive: Oriented x3 Impression/Plan - Problem List Problem List: POD #2 progressing diruresing baby with jaundis plan to keep mother with baby.
[2017-06-01 18:12] VITALS: BP 132/81
--- NOTE | 2017-06-01 19:43 | Labor Flowsheet ---
Labor Flowsheet Datetime Report Generated by CPN: 06/01/2017 19:43 Datetime: 06/01/2017 18:11 VITAL SIGNS NBP Sys/Jeniffer/Mean (mmHg): 132 : 81 : 92 Pulse: 92 LaborFlag: Labor Datetime: 06/01/2017 07:59 SpO2 (%): 100 Datetime: 05/30/2017 11:49 Temperature (F): 94.5 Temperature (C): 34.7 Temperature (C): 34.7 Datetime: 05/30/2017 06:27 UTERINE ACTIVITY Monitor Mode: Internal Frequency (min): 5.5 Quality: Strong Duration (sec): 90-120 Pattern: Normal: <= 5 Contractions in 10 Minutes Resting Tone (Palpate): Relaxed ASSESSMENT A Monitor Mode: External US FHR Baseline Rate : 140 Variability: Moderate 6-25 bpm Accelerations: 15X15 Decelerations: None Category: Category I Comments: left for OR Oxygen Method: Room Air Datetime: 05/30/2017 06:10 Patient Care Comments: consent for C/S signed Datetime: 05/30/2017 06:00 Respirations: 20 MEDICATIONS Pitocin (milliunits): Discontinued Antiemetics/Antacids: Zofran (mg) @ 4 Anesthesia Comments: Aguilar Whitmarsh at bedside TEACHING Instructional Method: Verbal Plan of Care: C/S Delivery Datetime: 05/30/2017 04:20 PAIN Pain Scale: 8 Datetime: 05/30/2017 04:15 Resting Tone IUP (mmHg): 20 Datetime: 05/30/2017 04:06 Actions for Decelerations: IV Bolus PATIENT CARE IV/Blood Work: IV Bolus Started Datetime: 05/30/2017 03:24 Medication Comments: 10.5 Datetime: 05/30/2017 03:19 STAGE 2 Pushing: Coached on Pushing; Urge to Push Pushing Position: Pushing with Contractions; Pushing Lithotomy Pushing Progress: Descent with Pushing Datetime: 05/30/2017 03:15 [place] Units (mmHg): 130 Datetime: 05/30/2017 02:52 VAGINAL EXAM Dilatation (cm): 10.0 Effacement (%): 100 Station: 2 Exam by: Marko, RN COMMUNICATION Communication: Call/Page Placed to Provider Provider Notified (Name): Dr. Uribe Communication Comments: VE; MD on his way to the hospital. Datetime: 05/30/2017 02:42 Notification Reason: Status Update Datetime: 05/30/2017 02:00 Teaching Comments: pushing Datetime: 05/30/2017 01:45 Monitor Interventions for FHR: Ultrasound Adjusted Datetime: 05/30/2017 01:40 Patient Position/Activity: Right Tilt Datetime: 05/30/2017 00:59 Anesthesia Level Check: T8- Ribs Datetime: 05/29/2017 23:00 Vaginal Bleeding: Normal Show Datetime: 05/29/2017 22:30 Pitocin Checklist: At Least 1 Acceleration of 15 bpm x 15 Seconds in 30 Minutes or Adequate Variabi lity; No More than 1 Late Deceleration Occurred in Past 30 Minutes; No More than 2 Variable Decelerat ions > 60 Seconds in Duration and decreasing >60 bpm in 30 minutes; No More than 5 Uterine Contractio ns in 10 Minutes for any 20 Minute Interval; Uterus Palpates Soft between Contractions; IUPC Resting Tone less than 25 mmHg Datetime: 05/29/2017 21:19 I/O Interventions: Guidry Cath Inserted Datetime: 05/29/2017 20:21 Contraction Comments: accidentally disconnected IUPC Datetime: 05/29/2017 19:30 MATERNAL ASSESSMENT Level of Consciousness: Fully Conscious DTR's/Clonus: DTRs 1+; DTRs 2+; No Clonus Headache: Denies Breath Sounds, Left: Clear and Equal Breath Sounds, Right: Clear and Equal Nausea/Vomiting: Denies Datetime: 05/29/2017 19:17 Monitor Interventions for UA: IUPC Inserted Datetime: 05/29/2017 19:01 Stage of : Labor Datetime: 05/29/2017 18:14 FHR Baseline Changes: No Baseline Change Pain Presence: None/Denies Pain Goal: 0 Pain Assessment Comments: epidural effective Datetime: 05/29/2017 17:45 PROCEDURE TIME OUT Procedure Type: labor epidural Procedure Verify: Correct Patient Identity; Correct Side and Site are Marked; Accurate Procedure Co nsent Form; Agreement on Procedure to be Done; Correct Patient Position; Addressed Need to Administer Antibiotics or Fluids for Irrigation; Safety Precautions Based on Patient History or Medication Use ANESTHESIA Anesthesia Plans: Epidural Epidural Positioning: Sitting Epidural Procedure: Test Dose Datetime: 05/29/2017 16:57 Cervix, Position: Posterior Vaginal Exam Comments: Difficult to reach vaginal os Datetime: 05/29/2017 16:02 Temperature Route: Oral Datetime: 05/29/2017 15:45 Antibiotics: Penicillin IV (Units) @ 2.5 Datetime: 05/29/2017 11:30 Membrane Status: Ruptured Amniotic Fluid Color: Clear Amniotic Fluid Amount: Small Amniotic Fluid Odor: Normal Datetime: 05/29/2017 03:00 Unit Routine: Medications Pain Management: IV Narcotics; Epidural
--- NOTE | 2017-06-23 10:19 | DISCHARGE SUMMARY ---
DATE OF ADMISSION: 05/29/2017 DATE OF DISCHARGE: 06/01/2017 ADMITTING DIAGNOSES 1. A 38 week 2 day gestation. 2. Spontaneous rupture of membranes. 3. Group B strep positive. 4. Morbid obesity. DISCHARGE DIAGNOSES 1. A 38 week 2 day gestation. 2. Spontaneous rupture of membranes. 3. Group B strep positive. 4. Morbid obesity. 5. Failure to descend. PROCEDURES 1. Pitocin augmentation. 2. Epidural. 3. Intrauterine pressure catheter. 4. Primary low transverse section. PRESENTING HISTORY: The patient is a 31-year-old primigravida whose due date was 06/08/2017. She presented with spontaneous rupture of membranes at roughly 10 o'clock on the evening of 05/28/2017. She developed contractions and presented to Labor and Delivery. She had a total of 7 visits during her course. She had a 20 pound weight gain. She was a transfer patient from [facility]. Her blood type is noted to be O positive. RPR, hepatitis B were negative. She was rubella immune. Chlamydia and GC were negative also. The patient has a history of fibromyalgia with depression and anxiety. Her examination on admission showed a cervix, which was 1 cm, 50% effaced, posterior. LABORATORY: CBC on admission showed a white count of 11.6. This fell to 10.6 on 06/01. Hemoglobin on admission was 11.2. This fell to 9.6. Her platelets were started at 136 and at discharge were 129. HOSPITAL COURSE: The patient was admitted, allowed to labor. She had Pitocin utilized for augmentation, as well as an epidural for pain control. She reached complete and pushed well; however, was unable to bring the baby down. For this reason, a primary low transverse section was performed. At time of delivery, a macrosomic infant, which weighed 9 pounds 6 ounces was delivered. Both mother and did well. The baby suffered some jaundice and wound up being kept in a little bit longer. Mother was discharged to home on the second day postoperatively. DISCHARGE MEDICATIONS 1. vitamins. 2. Percocet. 3. Motrin. She is instructed to follow up in the clinic in 1-2 weeks for postoperative evaluation of her wound. She is also to return in roughly 1 week for removal of her wound VAC. JOB #: [id number] EXT JOB #:[id number]
== END 2017-06-01 18:50 | disposition home or self-care (01) | DRG 765 ==
LOC: WFO 23:55 → FBP 05-29 00:05 → WFO 05-29 00:34 → FBP 05-29 00:35
PROVIDERS: ADMIT Obstetrics & Gynecology; ATTEND Obstetrics & Gynecology
PROC: 10H07YZ Insertion of Other Device into Products of Conception, Via Natural or Artificial Opening (ICD-10-PCS; 2017-05-29)
PROC: 10D00Z1 Extraction of Products of Conception, Low, Open Approach (ICD-10-PCS; principal; 2017-05-30 07:30)
DX: O99.824 Streptococcus B carrier state complicating childbirth (principal); O72.3 Postpartum coagulation defects; Z37.0 Single live birth; O99.89 Other specified diseases and conditions complicating pregnancy, childbirth and the puerperium; Z3A.38 38 weeks gestation of pregnancy; M79.7 Fibromyalgia; O99.344 Other mental disorders complicating childbirth; F32.9 Major depressive disorder, single episode, unspecified; O99.214 Obesity complicating childbirth; E66.01 Morbid (severe) obesity due to excess calories; Z68.38 Body mass index [BMI] 38.0-38.9, adult; O66.2 Obstructed labor due to unusually large fetus; O64.8XX0 Obstructed labor due to other malposition and malpresentation, not applicable or unspecified; O42.02 Full-term premature rupture of membranes, onset of labor within 24 hours of rupture; F41.9 Anxiety disorder, unspecified; Z62.819 Personal history of unspecified abuse in childhood; O90.81 Anemia of the puerperium; D64.9 Anemia, unspecified; D69.6 Thrombocytopenia, unspecified; O76 Abnormality in fetal heart rate and rhythm complicating labor and delivery
CPT/HCPCS: 36415; 85025; 99213

== ENCOUNTER 2018-12-26 10:30 | Outpatient (CLI) | payer OTHER ==
[2018-12-26 11:10] VITALS: BP 109/57
[2018-12-26 11:11] LABS: BILIRUBIN,URINE NEGATIVE (NEGATIVE); GLUCOSE, URINE (UA) NEGATIVE (NEGATIVE); KETONES,URINE (UA) NEGATIVE (NEGATIVE); LEUKOCYTE ESTERASE, URINE SMALL (NEGATIVE); NITRITE,URINE NEGATIVE (NEGATIVE); OCCULT BLOOD,URINE NEGATIVE (NEGATIVE); PROTEIN,URINE NEGATIVE (NEGATIVE); UROBILINOGEN,URINE 0.2 (NORMAL) E.U./dL (NORMAL)
[2018-12-26 11:14] LABS: CLARITY,URINE HAZY (CLEAR)
[2018-12-26 11:17] LABS: BACTERIA,URINE Rare /HPF (None Seen); RBC,URINE None Seen /HPF (0-5); SQUAMOUS EPITHELIAL CELL,UR MANY Squamous (<= Few)
[2018-12-26 11:47] LABS: BASOPHILS % (AUTO) 0.3 %; EOSINOPHILS % (AUTO) 0.4 %; HGB - HEMOGLOBIN 10.8 g/dL (12.0-16.0); LYMPHOCYTES # (AUTO) 1.7 10^3/uL (1.5-3.5); LYMPHOCYTES % (AUTO) 19.5 %; MEAN CORPUSCULAR HEMOGLOBIN 29.5 pg (27.0-31.0); MEAN CORPUSCULAR HGB CONC 34.6 g/dL (32.0-36.0); MEAN CORPUSCULAR VOLUME 85.1 fL (81.0-99.0); MEAN PLATELET VOLUME 9.5 fL (7.9-10.8); MONOCYTES # (AUTO) 0.4 10^3/uL (0.0-1.0); MONOCYTES % (AUTO) 4.8 %; NEUTROPHILS # (AUTO) 6.4 10^3/uL (1.5-6.6); PLT - PLATELET COUNT 176 10^3/uL (130-450); RED BLOOD COUNT 3.67 10^6/uL (4.20-5.40); RED CELL DISTRIBUTION WIDTH 13.5 % (12.0-15.0); WHITE BLOOD COUNT 8.6 x10^3/uL (4.8-10.8)
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
== END 2018-12-26 11:40 | disposition home or self-care (01) ==
LOC: WFO 10:30 → FBP 10:31 → WFO 11:40
PROVIDERS: ATTEND Obstetrics & Gynecology
DX: O9A.213 Injury, poisoning and certain other consequences of external causes complicating pregnancy, third trimester (principal); S39.012A Strain of muscle, fascia and tendon of lower back, initial encounter; Z3A.30 30 weeks gestation of pregnancy; X58.XXXA Exposure to other specified factors, initial encounter; O34.219 Maternal care for unspecified type scar from previous cesarean delivery; O99.89 Other specified diseases and conditions complicating pregnancy, childbirth and the puerperium; M54.9 Dorsalgia, unspecified; V49.9XXS Car occupant (driver) (passenger) injured in unspecified traffic accident, sequela
CPT/HCPCS: 36415; 81001; 82731; 85025; 87086; 99213